=== PATIENT | male | born 1990 | race Caucasian/White ===

== ENCOUNTER 2024-07-07 19:52 | Emergency (ER) | payer OTHER ==
[2024-07-07 20:02] VITALS: RESP 18
--- NOTE | 2024-07-07 20:43 | ED ---
URI HPI - General Chief Complaint: Upper Respiratory Infection Stated Complaint: coughing blood Time Seen by Provider: 07/07/24 20:41 Source: patient, RN notes reviewed, old records reviewed Mode of arrival: ambulatory Limitations: no limitations - History of Present Illness Initial Comments: This is a 33-year-old male to the ER for evaluation patient presents today for evaluation regards to cough congestion hemoptysis. Patient is coughing up blood no respiratory distress no recent fevers or other complaints MD Complaint: cough -: days(s) Severity: mild Severity scale (1-10): 3 Quality: sharp Consistency: intermittent Improves With: nothing Context: sick contacts Associated Symptoms: cough Treatments Prior to Arrival: none - Related Data Home Medications Medication Instructions Recorded Confirmed Albuterol Nebulized [Ventolin 2.5 mg INHALATION RT-Q4H PRN 02/02/16 02/02/16 Nebulized] Allergies Allergy/AdvReac Type Severity Reaction Status Date / Time vancomycin Allergy RED MAN Verified 07/07/24 20:02 SYNDROME Review of Systems ROS Statement: Those systems with pertinent positive or pertinent negative responses have been documented in the HPI. ROS Other: All systems not noted in ROS Statement are negative. 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 Absent: scleral icterus, conjunctival injection, periorbital swelling ENT exam: Present: normal exam, mucous membranes moist Neck exam: Present: normal inspection. Absent: tenderness, meningismus, lymphadenopathy Respiratory exam: Present: normal lung sounds bilaterally. Absent: respiratory distress, wheezes, rales, rhonchi, stridor Cardiovascular Exam: Present: regular rate, normal rhythm, normal heart sounds. Absent: systolic murmur, diastolic murmur, rubs, gallop, clicks GI/Abdominal exam: Present: soft, normal bowel sounds. Absent: distended, tenderness, guarding, rebound, rigid Extremities exam: Present: normal inspection, full ROM, normal capillary refill. Absent: tenderness, pedal edema, joint swelling, calf tenderness Back exam: Present: normal inspection Neurological exam: Present: alert, oriented X3, CN II-XII intact Psychiatric exam: Present: normal affect, normal mood Skin exam: Present: warm, dry, intact, normal color. Absent: rash Course Vital Signs 07/07/24 07/07/24 19:54 20:11 Temperature 97.7 F Pulse Rate 78 Respiratory 18 18 Rate Blood Pressure 119/68 O2 Sat by Pulse 97 Oximetry - Reevaluation(s) Reevaluation #1: 07/07/24 22:20 medical records reviewed Reevaluation #2: 07/07/24 22:20 Patient symptoms are improving Reevaluation #3: 07/07/24 22:21 Patient family informed of results questions answered Reevaluation #4: Was pt. sent in by a medical professional or institution (, PA, BOX WORKER, urgent care, hospital, or fpc...) When possible be specific @ -no Did you speak to anyone other than the patient for history (EMS, parent, family, police, friend...)? What history was obtained from this source @ -no Did you review nursing and triage notes (agree or disagree)? Why? @ -agree Are old charts reviewed (outside hosp., previous admission, EMS record, old EKG, old radiological studies, urgent care reports/EKG's, fpc records)? Report findings @ -yes Differential Diagnosis (chest pain, altered mental status, abdominal pain women, abdominal pain men, vaginal bleeding, weakness, fever, dyspnea, syncope, headache, dizziness, GI bleed, back pain, seizure, CVA, palpatations, mental health, musculoskeletal)? @ -prior EKG interpreted by me (3pts min.). @ -yes X-rays interpreted by me (1pt min.). @ -yes negative for acute disease CT interpreted by me (1pt min.). @ -no U/S interpreted by me (1pt. min.). @ -no What testing was considered but not performed or refused? (CT, X-rays, U/S, labs)? Why? @ -none What meds were considered but not given or refused? Why? @ -none Did you discuss the management of the patient with other professionals (professionals i.e. DrJada, PA, BOX WORKER, lab, RT, psych nurse, transition social worker, screenplay writer, teacher, public affairs officer, case assembler)? Give summary @ -no Was smoking cessation discussed for >3mins.? @ -no Was critical care preformed (if so, how long)? @ -no Were there social determinants of health that impacted care today? How? (Homelessness, low income, unemployed, alcoholism, drug addiction, transportation, low edu. Level, literacy, decrease access to med. care, correction, rehab)? @ -none Was there de-escalation of care discussed even if they declined (Discuss DNR or withdrawal of care, Hospice)? DNR status @ -no What co-morbidities impacted this encounter? (DM, HTN, Smoking, COPD, CAD, Cancer, CVA, ARF, Chemo, Hep., AIDS, mental health diagnosis, sleep apnea, morbid obesity)? @ -none Was patient admitted / discharged? Hospital course, mention meds given and route, prescriptions, significant lab abnormalities, going to OR and other pertinent info. @ - Undiagnosed new problem with uncertain prognosis? @ -no Drug Therapy requiring intensive monitoring for toxicity (Heparin, Nitro, Insulin, Cardizem)? @ -no Were any procedures done? @ -no Diagnosis/symptom? @ - Acute, or Chronic, or Acute on Chronic? @ -Acute Uncomplicated (without systemic symptoms) or Complicated (systemic symptoms)? @ -Complicated Side effects of treatment? @ -no Exacerbation, Progression, or Severe Exacerbation? @ -exacerbation Poses a threat to life or bodily function? How? (Chest pain, USA, PA, pneumonia, PE, COPD, DKA, ARF, appy, cholecystitis, CVA, Diverticulitis, Homicidal, Leonard icidal, threat to staff... and all critical care pts) @ -yes Reevaluation #5: Differential Dyspnea: Coronary syndrome, arrhythmia, tamponade, asthma, COPD, pulmonary embolism, pneumonia, pneumothorax, pulmonary effusion, anaphylaxis, diabetic ketoacidosis, flailed chest, pulmonary contusion, diaphragmatic rupture, anemia, neuromuscular, this is not meant to be an all-inclusive list. Medical Decision Making - Medical Decision Making 33 male to ER for hemoptysis. No acute distress here in the ER and does not deni ear to be infectious patient will continue home treatment - Lab Data Result diagrams: 07/07/24 21:21 07/07/24 21:21 Lab Results 07/07/24 07/07/24 07/07/24 Range/Units 21:21 21:21 21:21 WBC 7.5 (3.8-10.6) k/uL RBC 4.64 (4.30-5.90) m/uL Hgb 13.1 (13.0-17.5) gm/dL Hct 39.1 (39.0-53.0) % MCV 84.3 (80.0-100.0) fL MCH 28.3 (25.0-35.0) pg MCHC 33.5 (31.0-37.0) g/dL RDW 14.2 (11.5-15.5) % Plt Count 231 (150-450) k/uL MPV 8.6 Neutrophils % 60 % Lymphocytes % 28 % Monocytes % 6 % Eosinophils % 2 % Basophils % 1 % Neutrophils # 4.5 (1.3-7.7) k/uL Lymphocytes # 2.1 (1.0-4.8) k/uL Monocytes # 0.5 (0-1.0) k/uL Eosinophils # 0.1 (0-0.7) k/uL Basophils # 0.1 (0-0.2) k/uL PT 11.5 (10.0-12.5) sec INR 1.0 (<1.2) APTT 25.7 (22.0-30.0) sec Sodium 137 (137-145) mmol/L Potassium 5.1 (3.5-5.1) mmol/L Chloride 99 (98-107) mmol/L Carbon Dioxide 27 (22-30) mmol/L Anion Gap 11 mmol/L BUN 18 (9-20) mg/dL Creatinine 0.53 L (0.66-1.25) mg/dL Est GFR (CKD-EPI)AfAm >90 (>60 ml/min/1.73 sqM) Est GFR (CKD-EPI)NonAf >90 (>60 ml/min/1.73 sqM) Glucose 82 (74-99) mg/dL Calcium 9.1 (8.4-10.2) mg/dL Magnesium 2.2 (1.6-2.3) mg/dL Total Bilirubin 1.3 (0.2-1.3) mg/dL AST 57 (17-59) U/L ALT 33 (4-49) U/L Alkaline Phosphatase 104 (38-126) U/L Troponin I (0.000-0.034) ng/mL NT-Pro-B Natriuret Pep 492 pg/mL Total Protein 8.9 H (6.3-8.2) g/dL Albumin 4.7 (3.5-5.0) g/dL 07/07/24 Range/Units 21:21 WBC (3.8-10.6) k/uL RBC (4.30-5.90) m/uL Hgb (13.0-17.5) gm/dL Hct (39.0-53.0) % MCV (80.0-100.0) fL MCH (25.0-35.0) pg MCHC (31.0-37.0) g/dL RDW (11.5-15.5) % Plt Count (150-450) k/uL MPV Neutrophils % % Lymphocytes % % Monocytes % % Eosinophils % % Basophils % % Neutrophils # (1.3-7.7) k/uL Lymphocytes # (1.0-4.8) k/uL Monocytes # (0-1.0) k/uL Eosinophils # (0-0.7) k/uL Basophils # (0-0.2) k/uL PT (10.0-12.5) sec INR (<1.2) APTT (22.0-30.0) sec Sodium (137-145) mmol/L Potassium (3.5-5.1) mmol/L Chloride (98-107) mmol/L Carbon Dioxide (22-30) mmol/L Anion Gap mmol/L BUN (9-20) mg/dL Creatinine (0.66-1.25) mg/dL Est GFR (CKD-EPI)AfAm (>60 ml/min/1.73 sqM) Est GFR (CKD-EPI)NonAf (>60 ml/min/1.73 sqM) Glucose (74-99) mg/dL Calcium (8.4-10.2) mg/dL Magnesium (1.6-2.3) mg/dL Total Bilirubin (0.2-1.3) mg/dL AST (17-59) U/L ALT (4-49) U/L Alkaline Phosphatase (38-126) U/L Troponin I 0.012 (0.000-0.034) ng/mL NT-Pro-B Natriuret Pep pg/mL Total Protein (6.3-8.2) g/dL Albumin (3.5-5.0) g/dL - Radiology Data Radiology results: report reviewed (Chest x-ray), image reviewed Disposition Clinical Impression: Hemoptysis Disposition: HOME SELF-CARE Condition: Good Instructions (If sedation given, give patient instructions): Coughing Up Blood (Hemoptysis) (ED) Is patient prescribed a controlled substance at d/c from ED?: No Referrals: Vance Manzanares MD [Primary Care Provider] - 1-2 days Time of Disposition: 23:00
[2024-07-07] MEDS ORDERED: TRANEXAMIC 1,000 MG/100ML-NACL 1,000 MG in SALINE 1 100ML.BAG IV STA (21:21)
--- NOTE | 2024-07-07 21:45 | XR ---
EXAMINATION TYPE: XR chest 2V DATE OF EXAM: 07/07/2024 9:33 PM COMPARISON: Previous chest radiograph 02/02/2016. CLINICAL INDICATION: Male, 33 years old with history of difficulty breathing; [facility] TECHNIQUE: XR chest 2V Frontal and lateral views of the chest. FINDINGS: Cardiomegaly. Median sternotomy wires. Tracheostomy in place. Low lung volumes. Patchy left lung interstitial opacities. Endovascular stent graft and additional postsurgical changes overlying the upper left cardiac silhoue tte. No sizable pleural effusion or pneumothorax. IMPRESSION: Cardiomegaly and patchy interstitial opacities, left greater than right. Findings could reflect pulmo nary edema or atypical infectious etiology. [facility], , 07/07/2024 9:43 PM
[2024-07-07 21:46] LABS: Basophils # (A) 0.1 k/uL (0-0.2); Basophils % (A) 1 %; Eosinophils # (A) 0.1 k/uL (0-0.7); Eosinophils % (A) 2 %; HCT 39.1 % (39.0-53.0); HGB 13.1 gm/dL (13.0-17.5); Lymphocytes # (A) 2.1 k/uL (1.0-4.8); Lymphocytes % (A) 28 %; MCH 28.3 pg (25.0-35.0); MCHC 33.5 g/dL (31.0-37.0); MCV 84.3 fL (80.0-100.0); Mean Platelet Volume 8.6; Monocytes # (A) 0.5 k/uL (0-1.0); Monocytes % (A) 6 %; Neutrophils # (A) 4.5 k/uL (1.3-7.7); Neutrophils % (A) 60 %; Platelet Count 231 k/uL (150-450); RBC 4.64 m/uL (4.30-5.90); RDW 14.2 % (11.5-15.5); WBC 7.5 k/uL (3.8-10.6)
[2024-07-07 21:59] LABS: ALT 33 U/L (4-49); AST 57 U/L (17-59); African American GFR (CKD) >90 (>60 ml/min/1.73 sqM); Albumin 4.7 g/dL (3.5-5.0); Alkaline Phosphatase 104 U/L (38-126); Anion Gap 11 mmol/L; Blood Urea Nitrogen 18 mg/dL (9-20); Calcium 9.1 mg/dL (8.4-10.2); Carbon Dioxide 27 mmol/L (22-30); Chloride 99 mmol/L (98-107); Glucose 82 mg/dL (74-99); Magnesium 2.2 mg/dL (1.6-2.3); Non-African American GFR(CKD) >90 (>60 ml/min/1.73 sqM); Sodium 137 mmol/L (137-145); Total Bilirubin 1.3 mg/dL (0.2-1.3); Total Protein 8.9 g/dL (6.3-8.2)
[2024-07-07 22:05] LABS: NT-Pro-B-Type Natriuretic Pept 492 pg/mL
[2024-07-07 22:06] LABS: Partial Thromboplastin Time 25.7 sec (22.0-30.0); Prothrombin Time 11.5 sec (10.0-12.5)
[2024-07-07 22:07] LABS: Potassium 5.1 mmol/L (3.5-5.1)
[2024-07-07] MEDS: TRANEXAMIC ACID 1,000 MG/10 ML VIAL MISCELLANE ONE (22:11)
[2024-07-07] MEDS: SODIUM CHLORIDE 0.9% 500 ML 500 ML IV STA (22:30)
[2024-07-07 23:19] VITALS: BP 107/78; PULSE 70; TEMP 98.5
== END 2024-07-07 23:28 | disposition home or self-care (01) ==
LOC: EC 19:52
DX: R04.2 Hemoptysis (principal); Z88.1 Allergy status to other antibiotic agents
CPT/HCPCS: 36415; 71046; 80053; 83735; 83880; 84484; 85025; 85610; 85730; 94640; 99283